=== PATIENT | female | born 1930 | race Caucasian/White ===

== ENCOUNTER 2018-01-15 15:15 | Emergency (ER) | payer MEDICARE, BC ==
[~2018-01-15] VITALS: Ht 167.6 cm; Wt 64.0 kg
[~2018-01-15 15:15] MED LIST: ATEN1TAB75 PO; LIPI40TA PO; OXYC-360 PO; QUINIPRIL PO
[2018-01-15 15:20] VITALS: BP 195/95; PULSE 70; RESP 16; TEMP 99; O2SAT 96
--- NOTE | 2018-01-15 15:31 | PD ---
HPI Chief Complaint: Fall Time Seen by Provider: 15:31 Travel History International Travel<30 days: No Contact w/Intl Traveler<30days: No Traveled to known affect area: No History of Present Illness HPI 87 year old female presents to the emergency department following a slip and fall. Patient fell back landing on her left elbow but is reporting severe left shoulder pain and is unable to move her shoulder. She did not strike her head or lose consciousness. Pain is severe, constant only alleviated by not moving it. However patient does not want anything for pain control this point. She wants to "find out what is going on." PFSH Past Medical History High Cholesterol: Yes Diminished Hearing: No Hypertension: Yes Past Surgical History Tonsillectomy: Yes Other Surgery: Yes (THYROID TUMOR REMOVED) Social History Alcohol Use: No Tobacco Use: No Substance Use: No Allergies-Medications (Allergen,Severity, Reaction): Uncoded Allergies: EYE DROPS (Allergy, Intermediate, ., 01/15/18) Reported Meds & Prescriptions Reported Meds & Active Scripts Active Naprosyn (Naproxen) 500 Mg Tab 500 Mg PO BID PRN Percocet (Oxycodone-Acetaminophen) 5-325 mg Tab 1 Tab PO Q6H PRN Reported Accupril (Quinapril HCl) 40 Mg Tab 80 Mg PO DAILY Lipitor (Atorvastatin Calcium) 80 Mg Tab 80 Mg PO HS Atenolol 100 Mg Tab 100 Mg PO DAILY Review of Systems Except as stated in HPI: all other systems reviewed are Neg Physical Exam Narrative GENERAL: Well-nourished elderly female patient, ambulatory and in no acute distress. SKIN: Focused skin assessment warm/dry. HEAD: Atraumatic. Normocephalic. EYES: Pupils equal and round. No scleral icterus. No injection or drainage. ENT: No nasal bleeding or discharge. Mucous membranes pink and moist. NECK: Trachea midline. No JVD. CARDIOVASCULAR: Regular rate and rhythm. No murmur appreciated. RESPIRATORY: No accessory muscle use. Clear to auscultation. Breath sounds equal bilaterally. GASTROINTESTINAL: Abdomen soft, non-tender, nondistended. Hepatic and splenic margins not palpable. MUSCULOSKELETAL: No obvious deformities. No clubbing. No cyanosis. No edema. Patient is holding the left upper extremity flexed at the elbow over the abdomen. She is able to flex and extend the elbow but states this is painful and mostly painful in her left shoulder. She is unwilling and absolutely will not move the left shoulder. There is no obvious deformity. Distal pulses are palpable. Cap refill is within normal limits. Final Inspector Balance Wheel strengths are equal bilaterally. NEUROLOGICAL: Awake and alert. No obvious cranial nerve deficits. Motor grossly within normal limits. Normal speech. PSYCHIATRIC: Appropriate mood and affect; insight and judgment normal. Data Data Last Documented VS Vital Signs Date Time Temp Pulse Resp B/P (MAP) Pulse Ox O2 Delivery O2 Flow Rate FiO2 01/15/18 15:20 99.0 70 16 195/95 (128) 96 Orders Orders Shoulder, Limited(2vws) (01/15/18 ) Elbow, Complete (4 Vws) (01/15/18 ) Splint Or Brace Apply/Monitor (01/15/18 16:34) Sling Cradle Arm (01/15/18 ) Ed Discharge Order (01/15/18 17:07) [facility] Medical Decision Making Medical Screen Exam Complete: Yes Emergency Medical Condition: Yes Medical Record Reviewed: Yes Differential Diagnosis Fracture versus sprain versus dislocation versus contusion Narrative Course 87-year-old female presents to the emergency department for evaluation following a mis-step and fall. She is reporting severe left shoulder pain. The extremity is neurovascularly intact. X-ray imaging of the left shoulder and elbow are complete. Last Impressions Shoulder X-Ray 01/15/18 0000 Signed Impressions: Service Date/Time: Monday, January 15, 2018 15:45 - CONCLUSION: 1. Acute mildly displaced fracture involving the left proximal humeral neck. 2. Degenerative changes involving the left acromioclavicular joint. Amrit Palmer MD Elbow X-Ray 01/15/18 0000 Signed Impressions: Service Date/Time: Monday, January 15, 2018 15:45 - CONCLUSION: No acute fracture or dislocation. No elbow joint effusion. Diffuse osteopenia. Amrit Palmer MD I have discussed the patient with Dr. Yi, orthopedic surgeon field service consultant. She' ll be placed in a sling and discharged home. She is provided pain control and instructed to contact his office for follow-up. She verbalizes understanding and agrees to return immediately with any acute worsening of symptoms. Diagnosis Primary Impression: Left humeral fracture Referrals: Reza Yi MD Patient Instructions: Arm Fracture in Adults (ED), General Instructions Additional Instructions: Ice to the affected area Sling for support and comfort. Do not remove this unless it is to shower. Sleep sitting up with pillow for support Follow-up with orthopedic surgeon Return immediately with any acute worsening symptoms Med/Other Pt SpecificInfo: Prescription(s) given Scripts Naproxen (Naprosyn) 500 Mg Tab 500 MG PO BID Y for PAIN SCALE 1 TO 10, #30 TAB 0 Refills Prov: Micaela Ashton 01/15/18 Oxycodone-Acetaminophen (Percocet) 5-325 mg Tab 1 TAB PO Q6H Y for PAIN GREATER THAN 6, #15 TAB 0 Refills Prov: Micaela Ashton 01/15/18 Disposition: 01 DISCHARGE HOME Condition: Stable Micaela Ashton Jan 15, 2018 15:31
[2018-01-15] MEDS ORDERED: ACCU40TA PO (15:35)
[2018-01-15] MEDS ORDERED: ATEN100T PO (15:35)
[2018-01-15] MEDS ORDERED: LIPI80TA PO (15:35)
--- NOTE | 2018-01-15 16:17 | RADRPT ---
EXAM DATE/TIME: 01/15/2018 15:45 [facility] COMPARISON: No previous studies available for comparison. INDICATIONS : Left shoulder pain post fall. MEDICAL HISTORY : None. SURGICAL HISTORY : None. ENCOUNTER: Initial ACUITY: 1 day PAIN SCORE: 9/10 LOCATION: Left upper extremity FINDINGS: There is an acute mildly displaced fracture involving the left proximal humeral neck. Degenerative ch anges are noted involving left acromioclavicular joint. CONCLUSION: 1. Acute mildly displaced fracture involving the left proximal humeral neck. 2. Degenerative changes involving the left acromioclavicular joint. Amrit Palmer MD on January 15, 2018 at 16:14 Board Certified Radiologist. This report was verified electronically.
--- NOTE | 2018-01-15 16:19 | RADRPT ---
EXAM DATE/TIME: 01/15/2018 15:45 [facility] COMPARISON: No previous studies available for comparison. INDICATIONS : Left elbow pain post fall. MEDICAL HISTORY : None. SURGICAL HISTORY : None. ENCOUNTER: Initial ACUITY: 1 day PAIN SCORE: 7/10 LOCATION: Left upper extremity FINDINGS: Multiple view examination of the left elbow demonstrates no soft tissue swelling, joint effusion, or fracture. The osseous structures are in normal alignment. Diffuse osteopenia is noted. CONCLUSION: No acute fracture or dislocation. No elbow joint effusion. Diffuse osteopenia. Amrit Palmer MD on January 15, 2018 at 16:15 Board Certified Radiologist. This report was verified electronically.
[2018-01-15] MEDS ORDERED: NAPR500 PO (17:09)
[2018-01-15] MEDS ORDERED: PERC5TAB12 PO (17:09)
[2018-01-20] MEDS ORDERED: VITA1000 PO (15:17)
[2018-01-20] MEDS ORDERED: VITA500S3 SL (15:17)
== END 2018-01-15 17:39 | disposition home or self-care (01) ==
LOC: PHEFT 15:15
DX: S42.292A Other displaced fracture of upper end of left humerus, initial encounter for closed fracture (principal); I10 Essential (primary) hypertension; E78.00 Pure hypercholesterolemia, unspecified; W01.0XXA Fall on same level from slipping, tripping and stumbling without subsequent striking against object, initial encounter
CPT/HCPCS: 73030; 73080; 99283

== ENCOUNTER → 2018-01-21 | Day surgery (SDC) | payer MEDICARE, BC ==
[~2018-01-21] VITALS: Ht 167.6 cm; Wt 64.4 kg
[~2018-01-21] MED LIST changes: +ACCU40TA PO; +ACETAMINOPHEN 1000 MG/100 ML 100 ML IV ONE; +ACETAMINOPHEN/HYDROcodone 325 MG/5 MG TAB PO PRN; +APREPITANT 40 MG CAP ONE; +APREPITANT 40 MG CAP PO ONE; +ATEN100T PO; -ATEN1TAB75 PO; +BUPIVACAINE HCL PF 0.25% 30 ML VIAL ONE; +BUPIVACAINE HCL PF 0.5% 30 ML VIAL ONE; +BUPIVACAINE LIPOSO PF 1.3% INJ 20 ML in SODIUM CHLORIDE 0.9% INJ 40 ML IRRIGATION SCH; +CHLORHEXIDINE GLUCONATE 2 % 1 PACK (2 CLOTHS) TOPICAL PRN; +DO NOT ADM ANY ANTICOAGULANT DRUGS PRN; +FAMOTIDINE 20 MG/2 ML VIAL IV ONE; +FAMOTIDINE 20 MG/2 ML VIAL ONE; +GENTAMICIN SULFATE 80 MG/2 ML VIAL ONE; +KETOROLAC TROMETHAMINE 30 MG/ML (IVP) VIAL IV PUSH ONE; +KETOROLAC TROMETHAMINE 30 MG/ML (IVP) VIAL IVP ONE; +LACTATED RINGER'S 1000 ML IV PRN; -LIPI40TA PO; +LIPI80TA PO; +METOPROLOL TARTRATE 25 MG TAB PO PRN; +NAPR500 PO; +ONDANSETRON HCL 4 MG/2 ML VIAL IV PUSH ONE; +ONDANSETRON HCL 4 MG/2 ML VIAL IV PUSH PRN; +ONDANSETRON HCL 4 MG/2 ML VIAL ONE; -OXYC-360 PO; +POVIDONE IODINE 5% (ANTISEPSIS KIT) 4 APPLICATIONS EACH NARE PRN; -QUINIPRIL PO; +SODIUM CHLORID 0.9% 500 ML IV PRN; +VITA1000 PO; +VITA500S3 SL; +ceFAZolin 1,000 MG/NS 100 ML IV SCH; +ceFAZolin INJ 1,000 MG VIAL ONE
[2018-01-21 06:31] LABS: AUTOMATED NEUTROPHIL # 3.5 TH/MM3 (1.8-7.7); BASOPHIL # 0.1 TH/MM3 (0-0.2); BASOPHIL % 0.9 % (0.0-2.0); EOSINOPHIL # 0.1 TH/MM3 (0-0.4); EOSINOPHIL % 1.7 % (0.0-4.0); HEMATOCRIT 35.9 % (35.0-46.0); HEMOGLOBIN 12.1 GM/DL (11.6-15.3); LYMPH % 28.5 % (9.0-44.0); LYMPHOCYTE # 1.7 TH/MM3 (1.0-4.8); MEAN CELL VOLUME 90.1 FL (80.0-100.0); MEAN CORPUSCULAR HEMOGLOBIN 30.4 PG (27.0-34.0); MEAN CORPUSCULAR HGB CONC 33.7 % (32.0-36.0); MEAN PLATELET VOLUME 10.3 FL (7.0-11.0); MONO % 8.7 % (0.0-8.0); MONOCYTE # 0.5 TH/MM3 (0-0.9); NEUT % 60.2 % (16.0-70.0); PLATELET COUNT 168 TH/MM3 (150-450); RED BLOOD COUNT 3.98 MIL/MM3 (4.00-5.30); RED CELL DISTRIBUTION WIDTH 14.8 % (11.6-17.2); WHITE BLOOD COUNT 5.8 TH/MM3 (4.0-11.0)
[2018-01-21 06:54] LABS: BICARBONATE 27.5 MEQ/L (21.0-32.0); CALCIUM 8.8 MG/DL (8.5-10.1); CREATININE 1.31 MG/DL (0.50-1.00)
--- NOTE | 2018-01-21 07:41 | EKG ---
Date Performed: 01/21/2018 Time Performed: 06:38:57 PTAGE: 87 years EKG: Sinus rhythm MINIMAL VOLTAGE CRITERIA FOR LVH, CONSIDER NORMAL VARIANT BORDERLINE ECG NO PREVIOUS TRACING DOCTOR: Lino Min Interpretating Date/Time 01/21/2018 07:39:40
--- NOTE | 2018-01-21 09:37 | RADRPT ---
EXAM DATE/TIME: 01/21/2018 08:40 [facility] COMPARISON: No previous studies available for comparison. INDICATIONS : Post op ORIF left proximal humerus. MEDICAL HISTORY : None. SURGICAL HISTORY : None. ENCOUNTER: Subsequent ACUITY: 4 - 6 days PAIN SCORE: Non-responsive. LOCATION: Left Proximal humerus. FINDINGS: The patient is status post ORIF of left proximal humeral fracture with hardware in good position. CONCLUSION: Status post ORIF of left proximal humeral fracture with hardware in good position. Amrit Palmer MD on January 21, 2018 at 9:33 Board Certified Radiologist. This report was verified electronically.
--- NOTE | 2018-01-21 09:44 | HHI.FF ---
Face to Face Verification Diagnosis: (1) Closed fracture of upper end of left humerus Occupational Therapy Left UE Range of Motion: Pendular Nursing Nursing: Dressing changes Dressing Changes: Daily dressing change, Coverderm/Primapore Additional Instructions Do not remove Dermabond Prineo. I have seen patient Mindi Hazel on 01/21/18. My clinical findings support the need for the requested home health care services because: Ltd mobility - disease progression Limited ability to care for self High risk of falls I certify that my clinical findings support that this patient is homebound because: Post-op weakness Unsteady gait/balance Unsafe to leave home unassisted Srinivas Archer MD ([place]) Jan 21, 2018 09:43
--- NOTE | 2018-01-21 09:58 | PD.OP ---
Operative Report Date of Surgery: Jan 21, 2018 Preoperative Diagnosis: (1) Closed fracture of upper end of left humerus Displaced fracture surgical neck, left humerus. Postoperative Diagnosis: (1) Closed fracture of upper end of left humerus Displaced fracture, surgical neck, left humerus. Procedure: Open reduction and internal fixation left proximal humerus with Synthes proximal humerus locking plate and screws Anesthesia: Gen. endotracheal with supplemental interscalene block regional and local with Exparel Surgeon: Dipesh Archer M.D. Textile Finisher(s): JENNI [place] Operation and Findings: Indications and findings: This 87-year-old woman fell sustaining a direct injury to her right arm. She was seen in the emergency department and found to have a fracture. In my office she was found to have a displaced fracture with ecchymosis and tenderness. X-rays showed a displaced fracture of the proximal humerus in the surgical neck. Operative findings: There was a displaced fracture of the proximal humerus with some comminution. This was effectively a 2 part fracture. Implants: Synthes proximal humerus plate with a locking screws and 1 nonlocking cortical screw. Procedure: The patient was brought to the operating room and had an interscalene block regional anesthetic administered followed by a general endotracheal anesthetic. Appropriate monitoring was initiated. She was placed into a beachchair position with a bolster behind the left shoulder. The left shoulder was then prepped with alcohol, Hibiclens and ChloraPrep and draped in the usual manner with the shoulder draped free. An appropriate timeout procedure was carried out. An anterior incision was then made starting from the interval between the level of the coracoid and the acromioclavicular joint and carried distally to the anterior aspect of the axillary fold. The incision was deepened through the subcutaneous tissues down to the deltoid and deltopectoral groove. Dissection was carried out to the deltopectoral groove. The deltopectoral groove was then opened. The cephalic vein was then reflected medially. Retractors were placed. The fracture site was identified. Care was taken to avoid injury to neurovascular structures. After debriding portions of the bursa, a #2 FiberWire was placed into the infraspinatus for ability to manipulate the fracture. The fracture was then reduced and this position held with a non- threaded Betty wire. The shortest of the Synthes proximal humerus plate was chosen. The guide was positioned on the lateral side with a pin in the top of that. This was then positioned into place to hold the fracture in the appropriate position. A drill hole was then made through the center of the oblong hole for a screw. This was then sounded and an appropriate size cortical screw was inserted and tightened. This was then backed off a turn. Manipulation of the fracture and positioning of the fracture was then carried out with C-arm fluoroscopy to help. A pin was then driven into the humeral head through one of the fenestrations in the plate to stabilize it. After this was done it appeared to be appropriate on the C-arm fluoroscopy. This was then drilled, sounded and an appropriate size locking screw was positioned in place. Using the same drill, a second screw was placed in the more proximal row. This stabilized the fracture well. The initial screw on the plate was then tightened. The pin was removed from the top of the plate as well as from the fracture. The second row was then treated the same way as the first row. At the third row, only the posterior screw was placed in the same manner. At the most distal portion of the proximal part the single screw was placed across this. The 2 distal screw holes were then drilled and appropriate size locking screws placed here. The screws were then hand tightened. C-arm fluoroscopy verified good position and alignment of the fracture and implants. The wound was then irrigated well with lactated Ringer solution. Local anesthetic was administered throughout the shoulder with Exparel. Wound closure then commenced using 0 Vicryl interrupted [id number] sutures for closure of the deltopectoral groove, 2-0 Vicryl interrupted simple sutures with buried knots for the subcutaneous tissues and 4-0 Monocryl continuous subcuticular closure for the skin. The wound was dressed with Dermabond Prineo and dry dressing. The patient was transferred from the operating room to the recovery room in satisfactory condition having tolerated procedure well. Counts are correct. Specimens: None. Estimated blood loss: 50 mL. Srinivas Archer MD ([place]) Jan 21, 2018 09:58
[2018-01-21 11:40] VITALS: BP 140/68; PULSE 56; RESP 20; TEMP 97.7; O2SAT 96
== END | disposition home or self-care (01) ==
LOC: HSDC 05:09
PROVIDERS: ATTEND Orthopaedic Surgery
DX: S42.222A 2-part displaced fracture of surgical neck of left humerus, initial encounter for closed fracture (principal); I10 Essential (primary) hypertension; R94.31 Abnormal electrocardiogram [ECG] [EKG]; W19.XXXA Unspecified fall, initial encounter
CPT/HCPCS: 01630; 23615; 73060; 76000; 80048; 85025; 93005; C1713; J0131; J0690; J1580; J1885; J2405; J3010; J7120; J8501